=== PATIENT | female | born 1985 | race African-American/Black ===

== ENCOUNTER 2016-11-08 11:49 | Emergency (ER) | payer OTHER ==
[2016-11-08 11:53] VITALS: BP 119/79; PULSE 87; TEMP 98.7; BMI 24.3
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
[2016-11-08] MEDS ORDERED: TETRACAINE 0.5% OPHTH SOLN 2 ML BOTTLE ONE (12:28)
[2016-11-08] MEDS ORDERED: DIPHTH,PERTUSS(ACELL),TET 0.5 ML DISP.SYRIN IM ONE (12:46)
[2016-11-08] MEDS ORDERED: TETRACAINE 0.5% HCL 0.6ML DROPPER.BOTTLE OD ONE (13:00)
== END 2016-11-08 13:07 | disposition home or self-care (01) ==
LOC: JERFT 11:49
PROC: 3E0234Z Introduction of Serum, Toxoid and Vaccine into Muscle, Percutaneous Approach (ICD-10-PCS; principal; 2016-11-08)
DX: S05.01XA Injury of conjunctiva and corneal abrasion without foreign body, right eye, initial encounter (principal); S00.211A Abrasion of right eyelid and periocular area, initial encounter; Y04.2XXA Assault by strike against or bumped into by another person, initial encounter; Y93.89 Activity, other specified; Y92.038 Other place in apartment as the place of occurrence of the external cause
CPT/HCPCS: 90471; 90715; 99281-25

== ENCOUNTER 2023-04-16 18:45 | Emergency (ER) | payer SELFPAY ==
[2023-04-16 19:00] VITALS: BP 116/50; PULSE 53; RESP 18; TEMP 98.4; BMI 19.2
[2023-04-16] MEDS ORDERED: KETOROLAC TROMETHAMINE 30 MG/1 ML VIAL IM ONE (21:29)
[2023-04-16] MEDS ORDERED: KETOROLAC TROMETHAMINE 30 MG/1 ML VIAL ONE (21:34)
== END 2023-04-16 22:55 | disposition home or self-care (01) ==
LOC: JER 18:45 → JERFT 18:45
PROC: 3E0233Z Introduction of Anti-inflammatory into Muscle, Percutaneous Approach (ICD-10-PCS; principal; 2023-04-16)
DX: M25.512 Pain in left shoulder (principal)
CPT/HCPCS: 73030-TC-LT-FY; 99284-25

== ENCOUNTER 2023-09-04 17:14 | Inpatient (IN) | payer OTHER ==
[2023-09-04] MEDS ORDERED: DEXTROSE 5%-LACTATED RINGERS 1,000 ML IV SCH (19:45)
[2023-09-04 19:56] VITALS: BP 111/71; PULSE 66; RESP 20; TEMP 98.2; BMI 21.9
[2023-09-04 20:27] LABS: BASO % 0.4 % (0-2.0); EOS % 1.2 % (0-4.5); HEMATOCRIT 31.3 % (32.4-45.2); HEMOGLOBIN 10.8 GM/dL (10.7-15.3); LYMPH % 26.3 % (8-40); MCH 34.8 pg (25.7-33.7); MCHC 34.7 g/dl (32.0-36.0); MEAN CELL VOLUME 100.4 fl (80-96); MEAN PLT VOLUME 7.3 fl (7.5-11.1); MONO % 10.4 % (3.8-10.2); NEUT % 61.7 % (42.8-82.8); PLATELET COUNT 256 10^3/uL (134-434); RBC 3.12 M/mm3 (3.60-5.2); RDW 13.1 % (11.6-15.6); WHITE BLOOD COUNT 9.7 K/mm3 (4.0-10.0)
[2023-09-04 20:33] LABS: INR 1.03 (0.83-1.09)
[2023-09-04 20:36] LABS: ACTIVATED PTT 31.4 SECONDS (25.2-36.5)
[2023-09-04 20:42] LABS: BLOOD UREA NITROGEN 6.6 mg/dL (7-18); CALCIUM 9.1 mg/dL (8.5-10.1); POTASSIUM 3.6 mmol/L (3.5-5.1)
[2023-09-04 20:47] LABS: CREATININE 0.5 mg/dL (0.55-1.3)
[2023-09-04 21:36] LABS: HIV INTERPRETATION NEGATIVE (NEGATIVE)
== END 2023-09-04 21:32 | disposition short-term general hospital (02) | DRG 566 ==
LOC: JDEL 17:14 → JLDR 19:00
PROVIDERS: ADMIT Obstetrics & Gynecology; ATTEND Obstetrics & Gynecology
DX: O26.872 Cervical shortening, second trimester (principal); Z3A.22 22 weeks gestation of pregnancy
CPT/HCPCS: 36415; 80048; 85025; 85610; 85730; 86780; 86850; 86900; 86901; 87389; 87635

== ENCOUNTER 2023-12-25 12:42 | Inpatient (IN) | payer OTHER ==
[2023-12-25 13:17] LABS: BASO % 0.7 % (0-2.0); HEMOGLOBIN 10.5 GM/dL (10.7-15.3); LYMPH % 33.9 % (8-40); MCH 33.3 pg (25.7-33.7); MCHC 34.9 g/dl (32.0-36.0); MEAN CELL VOLUME 95.3 fl (80-96); MEAN PLT VOLUME 6.8 fl (7.5-11.1); NEUT % 51.4 % (42.8-82.8); PLATELET COUNT 198 10^3/uL (134-434); RBC 3.15 M/mm3 (3.60-5.2); RDW 13.2 % (11.6-15.6); WHITE BLOOD COUNT 4.6 K/mm3 (4.0-10.0)
[2023-12-25 13:23] LABS: INR 0.9 (0.83-1.09); PROTHROMBIN TIME (PATIENT) 10.2 SEC (9.7-13.0)
[2023-12-25 13:39] LABS: CALCIUM 8.3 mg/dL (8.5-10.1); CHLORIDE 110 mmol/L (98-107); POTASSIUM 3.9 mmol/L (3.5-5.1); SODIUM 140 mmol/L (136-145)
[2023-12-25 13:40] LABS: ANION GAP 7 mmol/L (4-13); CO2 24 mmol/L (21-32); GLUCOSE,RANDOM 69 mg/dL (74-106)
[2023-12-25] MEDS: ELECTROLYTE-148 SOLN 1,000 ML IV SCH (13:40)
[2023-12-25 13:43] LABS: CREATININE 0.6 mg/dL (0.55-1.3)
[2023-12-25 14:08] VITALS: BMI 25.2
[2023-12-25 14:57] LABS: RETICULOCYTES 1.4 % (0.5-1.5)
[2023-12-25] MEDS: DINOPROSTONE 10 MG VAGINAL SUPPOSITORY VG ONE (19:08)
[2023-12-26] MEDS ORDERED: OXYTOCIN 30 UNITS in 0.9% NS 30 UNIT/500 ML INFUS.BAG IVPB ONE (07:29)
[2023-12-26] MEDS: OXYTOCIN 30 UNITS in 0.9% NS 30 UNIT/500 ML INFUS.BAG IVPB SCH (07:45)
[2023-12-26] MEDS: NIFEdipine E.R. 30 MG TABLET PO SCH ×2 (11:35→22:35)
[2023-12-26] MEDS ORDERED: FENTANYL/BUPIVACAINE/NS/PF - PCEA - 50 ML DISP.SYRIN EP ONE ×2 (12:40→16:32)
[2023-12-26] MEDS ORDERED: BUPIVACAINE HCL/PF 0.25% (2.5MG/ML) 10 ML VIAL ONE ×2 (12:47→18:21)
[2023-12-26] MEDS: FENTANYL/BUPIVACAINE/NS/PF - PCEA - 50 ML DISP.SYRIN EP SCH ×2 (13:02→14:13)
[2023-12-26] MEDS ORDERED: NALOXONE HCL 0.4 MG/ML VIAL IVPUSH PRN (13:08)
[2023-12-26] MEDS ORDERED: ONDANSETRON 4 MG/2 ML VIAL ONE ×2 (14:07→19:32)
[2023-12-26] MEDS: ONDANSETRON 4 MG/2 ML VIAL IVPUSH ONE (14:10)
[2023-12-26] MEDS ORDERED: NIFEdipine 10 MG CAPSULE (FP) ONE (14:46)
[2023-12-26] MEDS: NIFEdipine 10 MG CAPSULE (FP) PO STA (14:48)
[2023-12-26] MEDS: CITRIC ACID/SODIUM CITRATE 30 ML UNIT-DOSE CUP PO ONE (19:14)
[2023-12-26] MEDS ORDERED: morphine SULFATE/PF 1 MG/2 ML (2cc Syringe - QUVA) ONE (19:27)
[2023-12-26] MEDS ORDERED: FENTANYL CITRATE/PF 50 MCG/ML VIAL ONE (19:27)
[2023-12-26] MEDS ORDERED: ceFAZolin SODIUM 1 GM VIAL ONE (19:32)
[2023-12-26] MEDS ORDERED: OXYTOCIN 10 UNITS/ML VIAL ONE ×2 (19:58)
[2023-12-26] MEDS ORDERED: DEXAMETHASONE SOD PHOSPHATE 4 MG/1 ML VIAL ONE (19:58)
[2023-12-26] MEDS ORDERED: MISOPROSTOL 200 MCG TABLET ONE (20:07)
[2023-12-26] MEDS ORDERED: IBUPROFEN 800 MG/8 ML IJ IVPB PRN (20:34)
[2023-12-26] MEDS ORDERED: METHYLERGONOVINE MALEATE 0.2 MG/1 ML AMP IM PRN (20:34)
[2023-12-26] MEDS: OXYTOCIN 20 UNITS in 0.9% NS 20 UNIT/1,000 ML INFUS.BAG IV SCH (20:50)
[2023-12-26] MEDS ORDERED: ONDANSETRON 4 MG/2 ML VIAL IVPUSH PRN (20:51)
[2023-12-26] MEDS ORDERED: NIFEdipine E.R. 30 MG TABLET PO ONE (22:32)
[2023-12-26] MEDS: FERROUS SO4 325 MG TABLET (FP) PO SCH (23:36)
[2023-12-27 07:53] LABS: BASO % 0.1 % (0-2.0); HEMATOCRIT 31.7 % (32.4-45.2); HEMOGLOBIN 10.9 GM/dL (10.7-15.3); LYMPH % 9.1 % (8-40); MCH 33.6 pg (25.7-33.7); MCHC 34.5 g/dl (32.0-36.0); MEAN CELL VOLUME 97.6 fl (80-96); MEAN PLT VOLUME 7.9 fl (7.5-11.1); MONO % 8.5 % (3.8-10.2); NEUT % 82.3 % (42.8-82.8); PLATELET COUNT 195 10^3/uL (134-434); RBC 3.25 M/mm3 (3.60-5.2); RDW 12.7 % (11.6-15.6); WHITE BLOOD COUNT 14.4 K/mm3 (4.0-10.0)
[2023-12-27] MEDS ORDERED: oxyCODONE HCL 5 MG TABLET PO PRN (08:34)
[2023-12-27] MEDS: PRENATAL VITAMINS W/ FOLIC ACID TABLET (FP) PO SCH (09:56)
[2023-12-27] MEDS: IBUPROFEN 600 MG TABLET (FP) PO PRN (09:57)
[2023-12-27] MEDS: SIMETHICONE 80 MG TAB.CHEW (FP) PO PRN (09:57)
[2023-12-27] MEDS ORDERED: BISACODYL 10 MG SUPP.RECT RC PRN (20:34)
[2023-12-27] MEDS: ACETAMINOPHEN 325 MG TABLET (FP) PO PRN (23:25)
[2023-12-28] MEDS: SENNOSIDES/DOCUSATE COMBO (SENNA PLUS) TABLET (UD) PO PRN (22:34)
[2023-12-29 06:22] LABS: BASO % 0.5 % (0-2.0); EOS % 2.2 % (0-4.5); HEMATOCRIT 25.8 % (32.4-45.2); HEMOGLOBIN 9.2 GM/dL (10.7-15.3); LYMPH % 27.5 % (8-40); MCH 34.2 pg (25.7-33.7); MCHC 35.7 g/dl (32.0-36.0); MEAN CELL VOLUME 95.8 fl (80-96); MEAN PLT VOLUME 7.4 fl (7.5-11.1); MONO % 10.5 % (3.8-10.2); NEUT % 59.3 % (42.8-82.8); PLATELET COUNT 237 10^3/uL (134-434); RDW 12.9 % (11.6-15.6); WHITE BLOOD COUNT 7.9 K/mm3 (4.0-10.0)
[2023-12-29 08:50] VITALS: BP 128/77; PULSE 76; RESP 16; TEMP 98.5
[2023-12-29] MEDS ORDERED: PATIENT'S OWN MEDICATION (NON-FORMULARY) (Prenatal Vit 93/Iron Fum/Folic [Prenatal Formula PO SCH (10:00)
== END 2023-12-29 12:25 | disposition home or self-care (01) | DRG 540 ==
LOC: JLDR 12:42 → J3W 12-27 00:38
PROVIDERS: ADMIT Obstetrics & Gynecology; ATTEND Obstetrics & Gynecology
PROC: 3E0P7VZ Introduction of Hormone into Female Reproductive, Via Natural or Artificial Opening (ICD-10-PCS; 2023-12-25)
PROC: 10D00Z1 Extraction of Products of Conception, Low, Open Approach (ICD-10-PCS; principal; 2023-12-26)
PROC: 3E0334Z Introduction of Serum, Toxoid and Vaccine into Peripheral Vein, Percutaneous Approach (ICD-10-PCS; 2023-12-27)
DX: O62.1 Secondary uterine inertia (principal); O36.5930 Maternal care for other known or suspected poor fetal growth, third trimester, not applicable or unspecified; O13.4 Gestational [pregnancy-induced] hypertension without significant proteinuria, complicating childbirth; O36.0930 Maternal care for other rhesus isoimmunization, third trimester, not applicable or unspecified; Z3A.39 39 weeks gestation of pregnancy; Z37.0 Single live birth
CPT/HCPCS: 36415; 80048; 82570; 82977; 83010; 84156; 84450; 84460; 84550; 85025; 85032; 85045; 85461; 85610; 85730; 86780; 86850; 86900; 86901; 88307-TC; 94010; 96372; J2790